=== PATIENT | male | born 1995 | race Caucasian/White ===

== ENCOUNTER 2018-06-22 17:13 | Inpatient (IN) | payer BC, OTHER ==
[~2018-06-22] VITALS: Ht 185.4 cm; Wt 81.6 kg
[2018-06-23] MEDS ORDERED: BUPRENORPHINE HCL 2 MG TAB.SUBL SL PRN (03:00)
[2018-06-23] MEDS ORDERED: MIRALAX 17 GM POWD.PACK PO PRN (03:00)
[2018-06-23] MEDS ORDERED: SRC OPIOID WITHDRAWAL ADMITTING PROTOCOL XX PRN (03:00)
[2018-06-23] MEDS ORDERED: LOPERAMIDE HCL 2 MG CAPSULE PO PRN ×2 (03:00)
[2018-06-23] MEDS ORDERED: diphenhydrAMINE 50 MG CAPSULE PO PRN (03:00)
[2018-06-23] MEDS ORDERED: DIAZEPAM 10 MG TABLET PO PRN (03:00)
[2018-06-23] MEDS ORDERED: LORAZEPAM 2 MG/1 ML VIAL IM PRN (03:00)
[2018-06-23] MEDS ORDERED: ONDANSETRON ODT 4 MG TAB.RAPDIS SL PRN (03:00)
[2018-06-23] MEDS ORDERED: ACETAMINOPHEN 325 MG TABLET PO PRN (03:00)
[2018-06-23] MEDS ORDERED: IBUPROFEN 600 MG TABLET PO PRN (03:00)
[2018-06-23] MEDS ORDERED: DIAZEPAM 5 MG TABLET PO PRN (03:00)
[2018-06-23] MEDS ORDERED: MAG HYDROX/AL HYDROX/SIMETH 30 ML LIQUID UDC PO PRN (03:00)
[2018-06-23] MEDS ORDERED: SRC BENZO WITHDRAWAL ADMITTING PROTOCOL XX PRN (03:00)
[2018-06-23] MEDS ORDERED: MAGNESIUM HYDROXIDE 30 ML LIQUID UDC PO PRN (03:00)
[2018-06-23] MEDS ORDERED: ONDANSETRON 4 MG/2 ML VIAL IM PRN (03:00)
[2018-06-23] MEDS ORDERED: QUET200T PO (03:21)
[2018-06-23] MEDS ORDERED: BUPR-96 PO (03:21)
[2018-06-23] MEDS ORDERED: DIAZEPAM 10 MG TABLET PO ONE (04:00)
[2018-06-23] MEDS ORDERED: BUPRENORPHINE HCL 2 MG TAB.SUBL SL ONE (04:00)
[2018-06-23 04:02] LABS: ALANINE AMINOTRANSFERASE 35 U/L (16-63); ALKALINE PHOSPHATASE 122 U/L (50-136); ASPARTATE AMINOTRANSFERASE 21 U/L (15-37); BILIRUBIN,TOTAL 0.6 mg/dL (0.2-1.0); CARBON DIOXIDE 28 mmol/L (21-32); CHLORIDE 101 mmol/L (98-107); CREATININE 0.9 mg/dL (0.6-1.3); GLUCOSE 89 mg/dL (74-106); MAGNESIUM 1.9 mg/dL (1.8-2.4); POTASSIUM 4.2 mmol/L (3.5-5.1); TOTAL PROTEIN, SERUM 8.2 g/dL (6.4-8.2); UREA NITROGEN, BLOOD 16 mg/dL (7-18)
[2018-06-23 04:04] LABS: ETHANOL < 3 MG/DL (0-0)
[2018-06-23 04:07] VITALS: BP 129/75
[2018-06-23 04:10] LABS: THYROID STIMULATING HORMONE 0.399 mIU/mL (0.358-3.740)
[2018-06-23 04:12] LABS: BASOPHILS % (AUTO) 0.4 % (0.0-2.0); EOSINOPHILS # (AUTO) 0.1 K/uL (0.0-0.7); EOSINOPHILS % (AUTO) 1.4 % (0.0-7.0); HEMATOCRIT 47.2 % (36.7-47.1); HEMOGLOBIN 16.4 g/dL (12.5-16.3); LYMPHOCYTES # (AUTO) 2.6 K/uL (20.0-40.0); LYMPHOCYTES % (AUTO) 27.7 % (20.5-74.5); MEAN CORPUSCULAR HEMOGLOBIN 29.9 uug (23.8-33.4); MEAN CORPUSCULAR HGB CONC 35 g/dL (32.5-36.3); MEAN CORPUSCULAR VOLUME 86.2 fL (73.0-96.2); MONOCYTES # (AUTO) 0.7 K/uL (2.0-10.0); MONOCYTES % (AUTO) 7.4 % (0-11); NEUTROPHILS % (AUTO) 63.1 % (31.5-64.5); PLATELET COUNT (AUTO) 253 K/uL (152-348); RED BLOOD CELL COUNT(AUTO) 5.48 MIL/uL (4.06-5.63); WHITE BLOOD COUNT (AUTO) 9.4 K/uL (3.6-10.2)
[2018-06-23 04:14] LABS: *AMPHETAMINE, URINE NEGATIVE (NEGATIVE); *BARBITURATE, URINE NEGATIVE (NEGATIVE); *CANNABINOID, URINE POSITIVE (NEGATIVE); *COCCAINE, URINE NEGATIVE (NEGATIVE); *OPIATE, URINE NEGATIVE (NEGATIVE); *PHENCYCLIDINE SCREEN,URINE NEGATIVE (NEGATIVE)
[2018-06-23] MEDS: DIAZEPAM 10 MG TABLET PO PRN ×2 (05:26→08:55)
[2018-06-23] MEDS: METHOCARBAMOL 750 MG TABLET PO PRN (06:20)
[2018-06-23] MEDS: HYDROXYZINE PAMOATE 25 MG CAPSULE PO PRN ×2 (06:20→20:10)
[2018-06-23] MEDS: CLONIDINE HCL 0.1 MG TABLET PO PRN ×2 (06:21→20:10)
[2018-06-23 08:28] VITALS: BP 141/77
[2018-06-23] MEDS ORDERED: QUETIAPINE FUMARATE 100 MG TABLET PO PRN (09:00)
[2018-06-23] MEDS ORDERED: 5 DAY TAPER BUPRENORPHINE -SERENITY PROTOCOL SL PRN (10:30)
[2018-06-23] MEDS ORDERED: 5 DAY TAPER VALIUM-SERENITY PROTOCOL PO PRN (10:30)
[2018-06-23 12:00] VITALS: BP 137/74
[2018-06-23] MEDS ORDERED: DIAZEPAM 10 MG TABLET PO SCH (13:00)
[2018-06-23] MEDS ORDERED: BUPRENORPHINE HCL 2 MG TAB.SUBL SL SCH (13:00)
[2018-06-23 16:52] VITALS: BP 139/76
[2018-06-23 20:00] VITALS: BP 134/89
[2018-06-23] MEDS: LORAZEPAM 1 MG TABLET PO PRN (20:09)
[2018-06-24] MEDS: QUETIAPINE FUMARATE 25 MG TABLET PO PRN ×2 (05:51→10:55)
[2018-06-24] MEDS: HYDROXYZINE PAMOATE 25 MG CAPSULE PO PRN ×2 (05:52→10:55)
[2018-06-24] MEDS: LORAZEPAM 1 MG TABLET PO PRN (05:52)
[2018-06-24 08:00] VITALS: BP 134/78
[2018-06-24] MEDS ORDERED: BUPRENORPHINE HCL 2 MG TAB.SUBL SL SCH (09:00)
[2018-06-24] MEDS ORDERED: DIAZEPAM 5 MG TABLET PO SCH (09:00)
[2018-06-24] MEDS ORDERED: MULTIVITAMINS,THERAPEUTIC TABLET PO SCH (09:00)
[2018-06-24] MEDS ORDERED: TUBERCULIN,PURIF.PROT.DERIV. 5 TU/0.1 ML TEST ID ONE (09:00)
[2018-06-24 10:07] LABS: HEPATITIS B SURFACE AG Negative (Negative)
[2018-06-24] MEDS: CLONIDINE HCL 0.1 MG TABLET PO PRN (10:55)
[2018-06-24] MEDS: METHOCARBAMOL 750 MG TABLET PO PRN (10:55)
[2018-06-24 12:00] VITALS: BP 142/68
[2018-06-25] MEDS ORDERED: DIAZEPAM 5 MG TABLET PO SCH (09:00)
[2018-06-25] MEDS ORDERED: BUPRENORPHINE HCL 2 MG TAB.SUBL SL SCH ×2 (09:00→15:00)
[2018-06-26] MEDS ORDERED: BUPRENORPHINE HCL 2 MG TAB.SUBL SL SCH (09:00)
[2018-06-26] MEDS ORDERED: DIAZEPAM 5 MG TABLET PO SCH (09:00)
[2018-06-27] MEDS ORDERED: DIAZEPAM 5 MG TABLET PO SCH (09:00)
[2018-06-27] MEDS ORDERED: BUPRENORPHINE HCL 2 MG TAB.SUBL SL SCH (09:00)
== END 2018-06-24 14:53 | disposition home or self-care (01) | DRG 897 ==
LOC: SRC 06-23 02:45
PROVIDERS: ADMIT Family Medicine Addiction Medicine; ATTEND Family Medicine Addiction Medicine
PROC: HZ2ZZZZ Detoxification Services for Substance Abuse Treatment (ICD-10-PCS; principal; 2018-06-23)
DX: F11.23 Opioid dependence with withdrawal (principal); G40.509 Epileptic seizures related to external causes, not intractable, without status epilepticus; F13.230 Sedative, hypnotic or anxiolytic dependence with withdrawal, uncomplicated; Z91.89 Other specified personal risk factors, not elsewhere classified; Z59.0 Homelessness; Z91.19 Patient's noncompliance with other medical treatment and regimen; F41.9 Anxiety disorder, unspecified; Z81.8 Family history of other mental and behavioral disorders; Z81.3 Family history of other psychoactive substance abuse and dependence; Z72.51 High risk heterosexual behavior; F32.9 Major depressive disorder, single episode, unspecified; Z76.5 Malingerer [conscious simulation]
CPT/HCPCS: 36415; 80307; 80349; 83735; 84443; 85025; 86592; 86705; 86803; 87340; 87806; A4663; G0480; Q0162